=== PATIENT | male | born 1945 | race Caucasian/White ===

== ENCOUNTER 2023-10-20 16:22 | Emergency (ER) | payer MEDICARE, OTHER ==
--- NOTE | 2023-10-20 16:32 | ERPHSYRPT ---
- History of Present Illness Time Seen by Provider: 10/20/23 16:30 Source: patient Exam Limitations: no limitations Physician History: 78yo m pmhx afib on genny presents to ED via private vehicle for laceration to left LE. Pt reports he was using a sawzall (automated serrated blade) when he cut through a nail and the blade hit his left morgan. 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 Pt ambulated into the ED w/o assistance. Pt denies numbness/tingling in the foot or toes, is able to move all toes. Timing/Duration: today Severity: moderate Location: extremities Possible Causes: other (sawsall injury) Associated Symptoms: denies symptoms Allergies/Adverse Reactions: No Known Drug Allergies Allergy (Verified 10/20/23 16:31) Home Medications: Aspirin 81 gm Chew [Baby Aspirin 81 mg Chew] 81 mg PO DAILY 11/05/12 [History] Lisinopril 20 mg [Zestril 20 MG] 20 mg PO DAILY 11/05/12 [History] Omeprazole 11/05/12 [History] Simvastatin 40 mg [Zocor 40 mg] 40 mg PO DAILY 11/05/12 [History] hydroCHLOROthiazide [Hydrochlorothiazide] 12.5 mg 11/05/12 [History] Hx Tetanus, Diphtheria Vaccination/Date Given: Yes Hx Influenza Vaccination/Date Given: No Hx Pneumococcal Vaccination/Date Given: No - Review of Systems Constitutional: No Symptoms Respiratory: No Symptoms Cardiac: No Symptoms Skin: Other (laceration) - Past Medical History Pertinent Past Medical History: Yes Cardiac History: High Cholesterol, Hypertension - Past Surgical History Past Surgical History: Yes Gastrointestinal: Cholecystectomy Other Surgical History: RIGHT FINGERS,SHOULDER,KNEE - Social History Smoking Status: Never smoker Exposure to second hand smoke: No Drug Use: none Patient Lives Alone: No - Nursing Vital Signs Nursing Vital Signs: Initial Vital Signs Temperature 97.5 F 10/20/23 16:32 Pulse Rate 60 10/20/23 16:32 Respiratory Rate 20 10/20/23 16:32 Blood Pressure 157/52 10/20/23 16:32 O2 Sat by Pulse Oximetry 95 10/20/23 16:32 Pain Scale Pain Intensity 3 - Physical Exam General Appearance: no apparent distress, alert Respiratory Exam: normal breath sounds, lungs clear, No chest tenderness Cardiovascular Exam: normal heart sounds, normal peripheral pulses Extremity Exam: other (deep linear laceration on anterior LLE, midway up morgan, 4cm ) Neurologic Exam: alert, oriented x 3, cooperative Lymphatic Exam: adenopathy SpO2 Interpretation: normal SpO2: 95 O2 Delivery: Room Air Procedures - Laceration/Wound Repair Left Lower Anterior Other Time of Procedure: 19:00 Wound Location: Left, lower leg Wound Length (cm): 4 Wound's Depth, Shape: into muscle, linear, into subcut Wound Explored: to base Irrigated: Yes Hibiclens Prep: Yes Anesthesia: local, 1% Lidocaine Volume Anesthetic (ccs): 5 Wound Debrided: extensive Wound Repaired With: sutures Suture Size/Type: 3-0, nylon Number of Sutures: 7 Layer Closure?: No Sterile Dressing Applied?: Yes Splint Applied?: No Progress: 10/20/23 19:30 discussed need for closure type w/ Dr Dickinson - orthopedics - who recommended closure of skin layer w/o attempting to close muscle layer as this musculature would not approximate well or respond well to suturing Ordered Tests: Active Orders 24 hr Category Date Time Status LOWER EXTREMITY WO CONTRAST [CT] Stat Exams 10/20/23 16:33 Completed Medication Summary Discontinued Medications Generic Name Dose Route Start Last Admin Trade Name Rui PRN Reason Stop Dose Admin Diphenhydramine HCl Confirm 10/20/23 18:54 Diphenhydramine Hcl 50 Mg/Ml Vial Administered 10/20/23 18:55 Dose 50 mg .ROUTE .STK-MED ONE Diphtheria/Tetanus/Acell Pertussis 0.5 ml 10/20/23 16:33 10/20/23 16:42 Tdap --Diph,Pertuss(Acell),Tet Vac/Pf 0.5 Ml Vial IM 10/20/23 16:34 0.5 ml .ONCE ONE Administration Diphtheria/Tetanus/Acell Pertussis Confirm 10/20/23 16:42 Tdap --Diph,Pertuss(Acell),Tet Vac/Pf 0.5 Ml Vial Administered 10/20/23 16:43 Dose 0.5 ml IM .STK-MED ONE Lidocaine HCl Confirm 10/20/23 19:00 Lidocaine Hcl 1% 20 Ml Mdv 20 Ml Ml Administered 10/20/23 19:01 Dose 1 ml .ROUTE .STK-MED ONE Lidocaine HCl Confirm 10/20/23 19:16 Lidocaine Hcl 1% 20 Ml Mdv 20 Ml Ml Administered 10/20/23 19:17 Dose 2 ml .ROUTE .STK-MED ONE - Progress Progress: improved Progress Note: 10/20/23 19:36 3.0 nylon for closure x 7 good approximation of wound, hemostatic at time of completion applied steri strips for added tensile strength as skin is thin and tight near wound bacitracin applied, wound wrapped w/ non-stick gauze and coband should wear current dressing for at least 48h 7 sutures for laceration repair leave in place for 14 days follow up w/ orthopedic surgeon Dr Dickinson on 10/22/23 in walk-in clinic 7 day course of augmentin prescribed return to ED if: develop fevers that do not resolve with tylenol, develop difficulty breathing, wound re-opens, develop drainage from the wound, lose sensation in foot Counseled pt/family regarding: diagnosis, need for follow-up, rad results Medical Desision Making - Diagnostic Testing Diagnostic test were ordered, analyzed, and reviewed by me: Yes Radiological Interpretation: Reviewed by me, Teleradiologist Report - Risk of complications Low Risk: Low risk of morbidity from additional dx testing or treatment - Departure Departure Disposition: Home Clinical Impression: Laceration of lower extremity Qualifiers: Encounter type: initial encounter Laterality: left Qualified Code(s): S81.812A - Laceration without foreign body, left lower leg, initial encounter Condition: Stable Critical Care Time: No Referrals: [facility]IFF[facility] NINO [NON-STAFF PHY W/O PRIVILEGES] - Follow up/PCP as directed Additional Instructions: 7 sutures for laceration repair leave in place for 14 days follow up w/ orthopedic surgeon Dr Dickinson on 10/22/23 in walk-in clinic 7 day course of augmentin prescribed bacitracin applied, wound wrapped w/ non-stick gauze and coband should wear current dressing for at least 48h return to ED if: develop fevers that do not resolve with tylenol, develop difficulty breathing, wound re-opens, develop drainage from the wound, lose sensation in foot Prescriptions: Amox Tr/Potass Clav. 875 mg [Augmentin 875-125 Tablet] 875 mg PO BID 7 Days #14 tablet
[2023-10-20 16:39] VITALS: TEMP 97.5
[2023-10-20] MEDS ORDERED: Adacel Vial IM ONE (16:42)
[2023-10-20] MEDS: Adacel Vial IM ONE (16:42)
[2023-10-20 18:34] VITALS: RESP 18
--- NOTE | 2023-10-20 18:39 | XRAY ---
CLINICAL HISTORY: deep laceration into muscle/ligamen COMPARISON: None. TECHNIQUE: Thin axial CT images of the limited left leg were obtained along with coronal and sagittal reconstructions. One of the following dose reduction techniques was utilized for this exam.Automated exposure control, adjustment of the mA and/or kV according to patient size, and use of iterative reconstruction. FINDINGS: Soft tissue laceration defect noted along the anterior aspect of the mid leg with partial superficial injuiry of the tibialis anterior and extensor digitorum longus muscles with soft tissue swelling and gas locules noted within it. Minimal retraction of the few involved muscle fibres. No definite ligamental injury given the limitation of CT scan. No definite vascular injuiry. Diffuse SC soft tissue swelling. Atrophic changes of the leg muscles predominantly gastrocnemius muscle. 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 No evidence of lytic or sclerotic bone lesion. IMPRESSION: Soft tissue laceration defect noted along the anterior aspect of the mid leg with partial superficial injury of the tibialis anterior and extensor digitorum longus muscles with soft tissue swelling and gas locules noted within it. No definite ligamental injury given the limitation of CT scan. No definite vascular injuiry. Diffuse Subcutaneous soft tissue swelling. Electronically Signed by: Tea Collins MD. (10/20/2023 18:34:26 EDT)
[2023-10-20] MEDS ORDERED: BENADRYL 50 MG/ML ONE (18:54)
[2023-10-20] MEDS ORDERED: XYLOCAINE 1% HCL 20 ML MDV ONE ×2 (19:00→19:16)
[2023-10-20] MEDS ORDERED: BACIGUENT PACKET ONE (19:32)
[2023-10-20] MEDS: BACIGUENT PACKET TP ONE (19:33)
[2023-10-20 19:36] VITALS: O2SAT 95
[2023-10-20] MEDS: XYLOCAINE 1% HCL 20 ML MDV IJ ONE (19:44)
[2023-10-20 20:03] VITALS: BP 140/79; PULSE 61
== END 2023-10-20 20:14 | disposition home or self-care (01) ==
LOC: ED 16:22
DX: S81.812A Laceration without foreign body, left lower leg, initial encounter (principal); W27.0XXA Contact with workbench tool, initial encounter; Y92.72 Chicken coop as the place of occurrence of the external cause; E78.5 Hyperlipidemia, unspecified; I10 Essential (primary) hypertension; Z79.899 Other long term (current) drug therapy; Z23 Encounter for immunization
CPT/HCPCS: 12002; 73700; 90471; 90715; 96372; 99283; J1200; A9270-GY